=== PATIENT | female | born 1935 | race Caucasian/White ===

== ENCOUNTER 2016-09-16 14:04 | Outpatient (CLI) | payer OTHER, MEDICARE ==
[~2016-09-16 14:04] MED LIST: ASPIRIN81 M1 PO; ATENOLOL50 MG PO; CRANBERRY300 MG PO; FISH OIL500 MG PO; K-TABS10 MEQ PO; LOSARTAN POTASS1 TA2 PO; SIMVASTATIN40 MG PO
--- NOTE | 2016-09-16 16:20 | DIAGNOSTIC IMAGING REPORT ---
PROCEDURE: MG BILATERAL DIAGNOSTIC W/CAD INDICATION: Palpable area left medial breast. TECHNIQUE: CC and MLO digital views of each breast with true-lateral digital view of the left breast. In addition, spot compression CC and MLO views were obtained of the upper inner left breast (region of clinical concern). Finally, high-resolution left breast ultrasound was performed (18 mHz). COMPARISON: None. FINDINGS: MAMMOGRAM: Computer-aided detection applied. Moderately dense and mildly nodular parenchymal pattern with a few scattered dystrophic calcifications. There is a 2.2 x 1.6 cm ovoid density in the upper inner left breast with stellate margins (0930 position, middle third). There is a 5 mm subcutaneous intramammary lymph node in the lower inner left breast. BREAST ULTRASOUND: There is a 2.2 x 1.5 cm heterogeneous ovoid shadowing mass with ill-defined margins in the upper inner left breast which corresponds to the mammographic and palpable mass. This demonstrates mild vascularity. IMPRESSION: 1. There is a 2.2 x 1.6 cm mass in the upper inner left breast which is considered highly suspicious for primary breast neoplasm. 2. Ultrasound-guided left breast biopsy is recommended. 3. Findings discussed with the patient and called to SANTANA Gant. RESULT CODE: 5- Highly suggestive of malignancy - appropriate action should be taken. A. A negative report should not delay biopsy if a dominant or clinically suspicious mass is present. 10-15% of cancers are not identified by x-ray. B. A negative report may reinforce clinical impression. C. Adenosis and dense breasts may obscure an underlying neoplasm. D. False positive reports average 6-10%. E.. A yearly screening mammogram is recommended. A reminder letter will be scheduled.
--- NOTE | 2016-09-16 16:22 | DIAGNOSTIC IMAGING REPORT ---
PROCEDURE: US NEEDLE CORE BREAST BX-LEFT INDICATION: LEFT BREAST MASS TECHNIQUE: Case was discussed with SANTANA Gant, request left breast biopsy. Informed consent was obtained and the patient was informed of the usual risks and complications including infection, bleeding, and allergy. Supine position. COMPARISON: Comparison is made to mammogram left breast ultrasound study earlier today (09/16/2016). FINDINGS: Following sterile preparation and 1% lidocaine local anesthetic, ultrasound guidance was utilized to place a 13.5-gauge coaxial needle into the upper inner left breast and directed into a the 2.2 cm breast nodule. Four core biopsy samples were obtained with a 14-gauge biopsy instrument. Samples were placed in formalin and transferred to the laboratory. The patient tolerated the procedure reasonably well and was discharged home in satisfactory condition with instructions to call for any untoward symptoms. IMPRESSION: 1. Successful ultrasound-guided biopsy of left breast mass.
== END 2016-09-16 23:00 ==
LOC: MAM SRH 14:04
PROC: 0HBU3ZX Excision of Left Breast, Percutaneous Approach, Diagnostic (ICD-10-PCS; principal; 2016-09-16)
DX: N63 Unspecified lump in breast (principal)

== ENCOUNTER 2016-09-20 13:08 | Outpatient (CLI) | payer OTHER, MEDICARE | END 2016-09-20 23:00 | LOC: LAB SRH 13:08 | DX: N63 Unspecified lump in breast (principal) | CPT/HCPCS: 90047; 90074 ==